=== PATIENT | female | born 1950 | race Caucasian/White ===

== ENCOUNTER 2019-03-26 16:04 | Emergency (ER) | payer MEDICARE, OTHER ==
[2019-03-26 16:27] VITALS: BP 115/57
--- NOTE | 2019-03-26 16:33 | EDM.PDOC ---
ED HPI GENERAL MEDICAL PROBLEM - General Chief Complaint: Skin Complaint Stated Complaint: HOOK IN FOOT Time Seen by Provider: 03/26/19 16:33 Source of Information: Reports: Patient, Family History Limitations: Reports: No Limitations - History of Present Illness INITIAL COMMENTS - FREE TEXT/NARRATIVE: Patient walking barefoot in unknown area and stepped on fish hook left heel. Patient is diabetic blood sugars are ok. Patient does not know last tetanus shot. Onset: Sudden foot Pain Score (Numeric/FACES): 4 - Related Data Allergies Allergy/AdvReac Type Severity Reaction Status Date / Time codeine Allergy Itching Verified 03/26/19 16:27 meperidine HCl [From Demerol] Allergy Itching Verified 03/26/19 16:27 morphine Allergy Itching Verified 03/26/19 16:27 Home Meds: Home Meds Furosemide 20 mg PO DAILY 03/26/19 [History] Gabapentin [Neurontin] 400 mg PO BEDTIME 03/26/19 [History] Insuln Asp Prot/Insulin Aspart [NovoLOG Mix 70-30] 13 units INJECT BEDTIME 03/26 [History] Insuln Asp Prot/Insulin Aspart [NovoLOG Mix 70-30] 20 units INJECT DAILY [History] Nadolol [Naldol] 20 mg PO DAILY 03/26/19 [History] Spironolactone 100 mg PO DAILY 03/26/19 [History] cephALEXin [Keflex] 250 mg PO Q8H 5 Days #15 cap 03/26/19 [Rx] Past Medical History Cardiovascular History: Reports: High Cholesterol, Hypertension Musculoskeletal History: Reports: Fracture Endocrine/Metabolic History: Reports: Diabetes, Type II - Past Surgical History HEENT Surgical History: Reports: Tonsillectomy GI Surgical History: Reports: Cholecystectomy Female Surgical History: Reports: Hysterectomy ED ROS GENERAL - Review of Systems Review Of Systems: ROS reveals no pertinent complaints other than HPI. ED EXAM, SKIN/RASH Exam: See Below Exam Limited By: No Limitations General Appearance: Alert, WD/WN, No Apparent Distress Head: Normocephalic Neck: Normal Inspection, Supple, Non-Tender, Full Range of Motion Respiratory/Chest: No Respiratory Distress, Lungs Clear, Normal Breath Sounds, Prolonged Expiration Cardiovascular: Normal Peripheral Pulses (good color) Extremities: Normal Inspection, Normal Range of Motion, Non-Tender, No Pedal Edema, Normal Capillary Refill, Leg Pain (fish hool heel of left foot ) Neurological: Alert, Oriented, CN II-XII Intact, Normal Cognition, Normal Gait, Normal Reflexes, No Motor/Sensory Deficits Psychiatric: Normal Affect, Normal Mood Skin: Warm, Dry, Intact, Normal Color Location, Skin: Upper Extremity, Left (fish hook left foot pucture wound remains after removal ) ED SKIN PROCEDURES - Laceration/Wound Repair Left Posterior Foot Lac/Wound length In cm: 1 (puncture wound ) Appearance: Subcutaneous Local Anesthesia - Lidocaine (Xylocaine): 1% with EPI Skin Prep: Providone-Iodine (Betadine) Saline Irrigation (cc's): 50 Tetanus Status Addressed: Yes (updated) Complications: No Complication Description: 18 G needle used to loosen marcel and cover marcel to allow for fish hook to be backed out of puncture wound site. Course - Vital Signs Last Recorded V/S: Last Vital Signs Temp 36.2 C 03/26/19 16:26 Pulse 62 03/26/19 16:26 Resp 20 03/26/19 16:26 BP 115/57 L 03/26/19 16:26 Pulse Ox 95 03/26/19 16:26 - Orders/Labs/Meds Orders: Active Orders 24 hr Category Date Time Status Vaccines to be Administered [RC] PER UNIT ROUTINE Care 03/26/19 16:37 Active Meds: Medications Discontinued Medications Generic Name Dose Route Start Last Admin Trade Name Chekoq PRN Reason Stop Dose Admin Diphtheria/Tetanus/Acell Pertussis 0.5 ml 03/26/19 16:35 03/26/19 16:42 Adacel IM 03/26/19 16:36 0.5 ml .ONCE ONE Administration Lidocaine/Epinephrine 10 ml 03/26/19 16:37 03/26/19 16:43 Xylocaine 1% With Epinephrine 1:100,000 SUBCUT 03/26/19 16:38 10 ml ONETIME ONE Administration Departure - Departure Time of Disposition: 17:20 Disposition: Home, Self-Care 01 Clinical Impression: Puncture wound, Tetanus toxoid vaccination administered at current visit - Discharge Information Prescriptions: cephALEXin [Keflex] 250 mg PO Q8H 5 Days #15 cap Instructions: Puncture Wound, VIS, Tetanus, Diphtheria, and Pertussis (Tdap) - CDC (12/10/2014) Referrals: PCP,None [Primary Care Provider] - 1 Week (PCP provider of choice for wound check in 1 weeks ensure resolved. Sooner if concerns as directed. ) Forms: ED Department Discharge Additional Instructions: 1. Keflex 250mg every am and pm to prevent secondary infection. 2. Soak foot in warm soapy water every am and pm. 3. Apply topical antibiotic ointment every am and pm. 4. Keep dressing in place and good foot care to prevent infection. 5. Recheck with PCP in 5 days if continue pain sooner if increased fever, difficulty managing blood sugars, swelling, redness, drainage or red streak up leg noted. - Problem List & Annotations (1) Puncture wound SNOMED Code(s): 913626720 Code(s): T14.8XXA - OTHER INJURY OF UNSPECIFIED BODY REGION, INITIAL ENCOUNTER Status: Acute Current Visit: Yes (2) Tetanus toxoid vaccination administered at current visit SNOMED Code(s): 425466427, 739237935 Code(s): Z23 - ENCOUNTER FOR IMMUNIZATION Status: Acute Current Visit: Yes - My Orders Last 24 Hours: My Active Orders 03/26/19 16:37 Vaccines to be Administered [RC] PER UNIT ROUTINE - Assessment/Plan Last 24 Hours: My Active Orders 03/26/19 16:37 Vaccines to be Administered [RC] PER UNIT ROUTINE Plan: 1. Keflex 250mg every am and pm to prevent secondary infection. 2. Soak foot in warm soapy water every am and pm. 3. Apply topical antibiotic ointment every am and pm. 4. Keep dressing in place and good foot care to preent ifneciton. 5. Recheck with PCP in 5 days if continue pain sooner if increased fever, difficulty managing blood sugars, swelling, redness, drainage or red streak up leg noted.
[2019-03-26] MEDS ORDERED: Diphtheria,Pertussis(Acell),Tetanus Vaccine 0.5 ML SDV IM ONE (16:35)
[2019-03-26] MEDS ORDERED: Lidocaine 1% with EPINEPHrine 1:100,000 50 ML MDV SUBCUT ONE (16:37)
== END 2019-03-26 18:15 | disposition home or self-care (01) ==
LOC: JP.ED 16:04
DX: S91.342A Puncture wound with foreign body, left foot, initial encounter (principal); I10 Essential (primary) hypertension; E11.9 Type 2 diabetes mellitus without complications; Z23 Encounter for immunization; Z98.890 Other specified postprocedural states; Z90.49 Acquired absence of other specified parts of digestive tract; Z90.710 Acquired absence of both cervix and uterus; Z88.5 Allergy status to narcotic agent; Z79.4 Long term (current) use of insulin; Z79.899 Other long term (current) drug therapy; W45.8XXA Other foreign body or object entering through skin, initial encounter
CPT/HCPCS: 90471; 90715; 99283

== ENCOUNTER 2020-01-03 22:26 | Emergency (ER) | payer MEDICARE ==
[2020-01-03 22:57] VITALS: BP 118/54; PULSE 60
--- NOTE | 2020-01-03 23:22 | EDM.PDOC ---
ED HPI GENERAL MEDICAL PROBLEM - General Chief Complaint: General Stated Complaint: MEDICAL VIA [facility] Time Seen by Provider: 01/03/20 23:10 Source of Information: Reports: Patient, EMS, Family History Limitations: Reports: Physical Impairment (Slight confusion and inconsistencies with answering questions) - History of Present Illness INITIAL COMMENTS - FREE TEXT/NARRATIVE: 69-year-old female was brought in by ambulance because of increasing confusion. She has a known history of cirrhosis, although she has no history of alcohol abuse and according to the patient and family she is negative for hepatitis C. She was on lactulose in the past but stopped taking it. Last week she was confused, fatigued, and her color looked "green" so they took her to the walk- in clinic in [place] but they sent her home. It is unsure what was done or tested. All week she has not been herself and tonight they were playing cards and she was especially confused so they called the ambulance. The patient herself has no complaints of pain, fever, shortness of breath or nausea or vomiting. She does admit that she is not thinking clearly, and also admits she has not taken her lactulose for almost a year. Onset: Gradual Duration: Week(s): (Symptoms have been ongoing for over a week) Associated Symptoms: Reports: Confusion, Other. 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, Other (see below) - Related Data Allergies Allergy/AdvReac Type Severity Reaction Status Date / Time codeine Allergy Itching Verified 01/03/20 22:59 hydrocodone Allergy Hives Verified 01/03/20 22:59 meperidine HCl [From Demerol] Allergy Itching Verified 01/03/20 22:59 morphine Allergy Itching Verified 01/03/20 22:59 Home Meds: Home Meds Furosemide 20 mg PO DAILY 03/26/19 [History] Insuln Asp Prot/Insulin Aspart [NovoLOG Mix 70-30] 13 units INJECT BEDTIME 03/26 [History] Insuln Asp Prot/Insulin Aspart [NovoLOG Mix 70-30] 20 units INJECT DAILY [History] Spironolactone 100 mg PO DAILY 03/26/19 [History] nadoloL [Naldol] 20 mg PO DAILY 03/26/19 [History] Fexofenadine [Dee] 180 mg PO DAILY 01/03/20 [History] Glucosamine [Glucosamine Sulfate] 500 mg PO DAILY 01/03/20 [History] Lactulose 20 gm PO DAILY 01/03/20 [History] Omeprazole 20 mg PO DAILY 01/03/20 [History] Potassium Gluconate [Potassium] 99 mg PO DAILY 01/03/20 [History] Past Medical History Cardiovascular History: Reports: High Cholesterol, Hypertension Gastrointestinal History: Reports: Cirrhosis Musculoskeletal History: Reports: Fracture Endocrine/Metabolic History: Reports: Diabetes, Type II - Infectious Disease History Infectious Disease History: Reports: Chicken Pox - Past Surgical History HEENT Surgical History: Reports: Tonsillectomy GI Surgical History: Reports: Cholecystectomy Female Surgical History: Reports: Hysterectomy ED ROS GENERAL - Review of Systems Review Of Systems: See Below Constitutional: Reports: Fatigue, Decreased Appetite. Denies: Fever, Chills HEENT: Denies: Vision Change Respiratory: Denies: Shortness of Breath, Cough Cardiovascular: Denies: Chest Pain GI/Abdominal: Reports: Decreased Appetite. Denies: Abdominal Pain, Nausea, Vomiting Skin: Reports: Pallor Neurological: Reports: Confusion. Denies: Headache ED EXAM, GENERAL - Physical Exam Exam: See Below Exam Limited By: No Limitations General Appearance: Alert, No Apparent Distress Eye Exam: Bilateral Eye: Normal Inspection Head: Atraumatic Neck: Non-Tender Respiratory/Chest: No Respiratory Distress, Lungs Clear Cardiovascular: Regular Rate, Rhythm. No: Extra Beats GI/Abdominal: Soft, Other (Reacts with some mild discomfort to palpation across the upper abdomen, no focal guarding or rebound) Extremities: Normal Inspection. No: Pedal Edema Neurological: Alert, No Motor/Sensory Deficits, Other (Patient has some slight disorientation especially to time) Psychiatric: Flat Affect Skin Exam: Warm, Dry Course - Vital Signs Last Recorded V/S: Last Vital Signs Temp 97.3 F 01/03/20 22:46 Pulse 60 01/03/20 22:46 Resp 20 01/03/20 22:46 BP 118/54 L 01/03/20 22:46 Pulse Ox 97 01/03/20 22:46 - Orders/Labs/Meds Labs: Laboratory Tests 01/03/20 01/03/20 01/03/20 Range/Units 23:25 23:25 23:25 WBC 5.2 (4.5-11.0) K/uL RBC 4.63 (3.30-5.50) M/uL Hgb 14.4 (12.0-15.0) g/dL Hct 44.6 (36.0-48.0) % MCV 96 (80-98) fL MCH 31 (27-31) pg MCHC 32 (32-36) % Plt Count 92 L (150-400) K/uL Neut % (Auto) 66 (36-66) % Lymph % (Auto) 18 L (24-44) % [place] % (Auto) 15 H (2-6) % Eos % (Auto) 1 L (2-4) % Baso % (Auto) 0 (0-1) % Sodium 138 L (140-148) mmol/L Potassium 3.5 L (3.6-5.2) mmol/L Chloride 102 (100-108) mmol/L Carbon Dioxide 31 (21-32) mmol/L Anion Gap 8.5 (5.0-14.0) mmol/L BUN 15 (7-18) mg/dL Creatinine 0.9 (0.6-1.0) mg/dL Est Cr Clr Drug Dosing 54.58 mL/min Estimated GFR (MDRD) > 60 (>60) Glucose 178 H (74-106) mg/dL Calcium 8.9 (8.5-10.1) mg/dL Total Bilirubin 1.6 H (0.2-1.0) mg/dL AST 49 H (15-37) U/L ALT 42 (12-78) U/L Alkaline Phosphatase 124 H (46-116) U/L Ammonia 6 L (11-32) mmol/L Total Protein 7.3 (6.4-8.2) g/dL Albumin 3.3 L (3.4-5.0) g/dL Globulin 4.0 H (2.3-3.5) g/dL Albumin/Globulin Ratio 0.8 L (1.2-2.2) Urine Color (YELLOW) Urine Appearance (CLEAR) Urine pH (5.0-8.0) Ur Specific Muse (1.008-1.030) Urine Protein (NEGATIVE) mg/dL Urine Glucose (UA) (NEGATIVE) mg/dL Urine Ketones (NEGATIVE) mg/dL Urine Occult Blood (NEGATIVE) Urine Nitrite (NEGATIVE) Urine Bilirubin (NEGATIVE) Urine Urobilinogen (0.2-1.0) EU/dL Ur Leukocyte Esterase (NEGATIVE) Urine RBC (0-5) Urine WBC (0-5) Ur Epithelial Cells Amorphous Sediment Urine Bacteria Urine Mucus 01/04/20 Range/Units 00:19 WBC (4.5-11.0) K/uL RBC (3.30-5.50) M/uL Hgb (12.0-15.0) g/dL Hct (36.0-48.0) % MCV (80-98) fL MCH (27-31) pg MCHC (32-36) % Plt Count (150-400) K/uL Neut % (Auto) (36-66) % Lymph % (Auto) (24-44) % [place] % (Auto) (2-6) % Eos % (Auto) (2-4) % Baso % (Auto) (0-1) % Sodium (140-148) mmol/L Potassium (3.6-5.2) mmol/L Chloride (100-108) mmol/L Carbon Dioxide (21-32) mmol/L Anion Gap (5.0-14.0) mmol/L BUN (7-18) mg/dL Creatinine (0.6-1.0) mg/dL Est Cr Clr Drug Dosing mL/min Estimated GFR (MDRD) (>60) Glucose (74-106) mg/dL Calcium (8.5-10.1) mg/dL Total Bilirubin (0.2-1.0) mg/dL AST (15-37) U/L ALT (12-78) U/L Alkaline Phosphatase (46-116) U/L Ammonia (11-32) mmol/L Total Protein (6.4-8.2) g/dL Albumin (3.4-5.0) g/dL Globulin (2.3-3.5) g/dL Albumin/Globulin Ratio (1.2-2.2) Urine Color Yellow (YELLOW) Urine Appearance Clear (CLEAR) Urine pH 6.0 (5.0-8.0) Ur Specific Muse 1.015 (1.008-1.030) Urine Protein Negative (NEGATIVE) mg/dL Urine Glucose (UA) Negative (NEGATIVE) mg/dL Urine Ketones Trace H (NEGATIVE) mg/dL Urine Occult Blood Negative (NEGATIVE) Urine Nitrite Negative (NEGATIVE) Urine Bilirubin Negative (NEGATIVE) Urine Urobilinogen 1.0 (0.2-1.0) EU/dL Ur Leukocyte Esterase Negative (NEGATIVE) Urine RBC 0-5 (0-5) Urine WBC 0-5 (0-5) Ur Epithelial Cells Rare Amorphous Sediment Not seen Urine Bacteria Rare Urine Mucus Not seen - Radiology Interpretation Free Text/Narrative:: CBC is normal, chemistry panel shows mild elevation of bilirubin and AST but ammonia is only 6. Nothing on the labs would explain confusion so a head CT without contrast was ordered. Patient seems to be improving and stable. - Re-Assessments/Exams Free Text/Narrative Re-Assessment/Exam: 01/03/20 23:21 CBC, CMP and ammonia levels will be tested. 01/04/20 00:48 CBC and CMP were relatively normal other than an elevated bilirubin and AST. Ammonia was normal. CT of the head will be obtained Head CT was negative, UA was also negative. Departure - Departure Time of Disposition: 01:15 Disposition: Home, Self-Care 01 Clinical Impression: Confusion - Discharge Information Instructions: Confusion Referrals: Murray Lynch MD [Primary Care Provider] - Forms: ED Department Discharge Care Plan Goals: Continue current medications, stay hydrated and get good sleep and increase activity as tolerated. Recheck with your regular doctor in the next 5 to 10 days if not improving satisfactorily. Sepsis Event Note - Evaluation Sepsis Screening Result: No Definite Risk - Focused Exam Vital Signs: Vital Signs Temp Pulse Resp BP Pulse Ox 01/03/20 22:46 97.3 F 60 20 118/54 L 97 Date Exam was Performed: 01/04/20 Time Exam was Performed: 01:25
--- NOTE | 2020-01-04 00:44 | CRLCT ---
INDICATION: Confusion TECHNIQUE: CT head without contrast. COMPARISON: None FINDINGS: CSF spaces: Within normal limits for age. Brain parenchyma: The motta-white differentiation is normal. No sign of mass, hemorrhage, or midline shift. Skull base and calvarium: The visualized paranasal sinuses and mastoid air cells demonstrate no acute or significant findings. The visualized orbits are grossly unremarkable. No skull fractures. IMPRESSION: Unremarkable noncontrast head CT. Dictated by Vitor Shaw MD @ 01/04/2020 12:42:39 AM Please note that all CT scans at this facility use dose modulation, iterative reconstruction, and/or weight-based dosing when appropriate to reduce radiation dose to as low as reasonably achievable. Dictated by: Vitor Shaw MD @ 01/04/2020 00:42:45 (Electronically Signed)
== END 2020-01-04 01:15 | disposition home or self-care (01) ==
LOC: JP.ED 22:26
DX: R41.0 Disorientation, unspecified (principal); I10 Essential (primary) hypertension; E11.9 Type 2 diabetes mellitus without complications; E78.00 Pure hypercholesterolemia, unspecified; Z88.5 Allergy status to narcotic agent; Z88.8 Allergy status to other drugs, medicaments and biological substances; Z79.899 Other long term (current) drug therapy; Z79.4 Long term (current) use of insulin
CPT/HCPCS: 36415; 70450; 80053; 81001; 82140; 85025; 99283; 99285-25